=== PATIENT | female | born 1975 | race Caucasian/White ===

== ENCOUNTER 2016-06-22 18:33 | Inpatient (IN) ==
[2016-06-22 20:34] LABS: INR 0.98 (0.86-1.15); PROTIME 13.3 Seconds (12.1-15.5)
[2016-06-22 20:35] LABS: PTT PL 24.1 Seconds (22.6-43.9)
[2016-06-22 20:36] LABS: BASO 1 % (0-1); BASO% 0.8 % (0.0-0.8); EOS# 0.12 X1000 (0.0-0.7); EOS% 0.9 % (0.0-10.0); HEMATOCRIT 26.9 % (37.0-47.0); IMM GRAN# 0.02 X1000 (0.0-0.04); IMM GRAN% 0.2 % (0.0-0.5); LYMPH# 2.22 X1000 (1.2-3.4); LYMPH% 17.1 % (20.5-51.1); LYMPHS 13 % (21-51); MANUAL DIFF NEEDED? YES; MCH 16.3 PG (27-31); MCV 62.6 FL (81-99); MONO 8 % (1-9); MONO% 6.9 % (1.7-9.3); NEUT% 74.1 % (42.2-75.2); PLT 387 X1000 (130-400)
[2016-06-22 20:49] LABS: AGAP 15; ALBUMIN 4.5 g/dL (3.5-5.0); ALKALINE PHOSPHATASE 56 U/L (32-104); BUN 25 mg/dL (8-22); CALCIUM 8.9 mg/dL (8.8-10.2); CHLORIDE 99 mmol/L (98-107); COSMO 276; GOT 12 U/L (10-30); GPT 8 U/L (10-36); POTASSIUM 3.8 mmol/L (3.5-5.1); SODIUM 135 mmol/L (136-145); TCO2 22 mmol/L (25-35); TOTAL BILIRUBIN < 0.15 mg/dL (0.20-1.00); TOTAL PROTEIN 7.6 g/dL (6.3-8.3)
[2016-06-22] MEDS ORDERED: DILAUDID ONE (21:28)
[2016-06-22] MEDS ORDERED: DILAUDID IV ONE (21:30)
[2016-06-22] MEDS ORDERED: NS 1,000 ML IV ONE (22:20)
[2016-06-22] MEDS ORDERED: TYLENOL PO ONE (23:18)
[2016-06-22] MEDS ORDERED: BENADRYL PO ONE (23:18)
[2016-06-23 01:10] LABS: OCCULT BLOOD 1 NEGATIVE (NEGATIVE)
[2016-06-23] MEDS: PERCOCET-5 PO PRN ×5 (01:46→23:05)
[2016-06-23 07:39] LABS: HEMATOCRIT 31.7 % (37.0-47.0); HEMOGLOBIN 9.1 g/dL (12.0-16.0); MCH 19.6 PG (27-31); MCHC 28.7 g/dL (33-37); MCV 68.3 FL (81-99); MPV 10.3 FL (7.4-10.4); RBC 4.64 XMIL (4.2-5.4)
[2016-06-23 07:48] LABS: ALBUMIN 4.1 g/dL (3.5-5.0); CALCIUM 8.5 mg/dL (8.8-10.2); POTASSIUM 4.1 mmol/L (3.5-5.1); TOTAL BILIRUBIN 0.5 mg/dL (0.20-1.00); TOTAL PROTEIN 6.8 g/dL (6.3-8.3)
[2016-06-23] MEDS ORDERED: G.I. COCKTAIL PO PRN (08:42)
[2016-06-23] MEDS ORDERED: SODIUM CHLORIDE 0.9% INJ SCH (08:45)
[2016-06-23] MEDS: PROTONIX IV SCH ×2 (09:26→23:06)
[2016-06-23] MEDS: CARAFATE PO SCH ×3 (09:34→15:43)
[2016-06-23] MEDS ORDERED: ZOFRAN IV PRN (09:37)
--- NOTE | 2016-06-23 15:52 | Diag Imaging Result Document ---
PROCEDURE NAME: MRI BRAIN W/O CONTRAST - 06/23/2016 MRI BRAIN WITHOUT CONTRAST: TECHNIQUE: No contrast administered per request of the referring provider. COMPARISON: No comparison MRI brain is available. FINDINGS: The technologist repeated multiple sequences due to patient motion. Despite this, there are still artifacts from motion which limit detail on several of the sequences. There is no evidence of hemorrhage, mass effect, midline shift, or hydrocephalus. There are no substantial signal abnormalities identified. IMPRESSION: Some limitation of detail due to artifacts from motion. No visible intracranial abnormality.
--- NOTE | 2016-06-23 18:05 | HISTORY AND PHYSICAL ---
CHIEF COMPLAINT: Abnormal labs, shortness of breath, weakness and fatigue. HISTORY OF PRESENT ILLNESS: This is a 41-year-old female who presented to the emergency room on the recommendation of her primary care physician after being found to have a hemoglobin of 7. She has complained of weakness, fatigue, some shortness of breath especially on exertion for a week prior. She states she has a history of migraines and over the last 1-2 months has had an increase in headaches taking up to 5 Goody powders a day most every day for relief of her headache. . She has been vomiting in the previous 4 days prior to admission but she denies any black or bloody vomitus or stools. Labs revealed a hemoglobin of 7 and hematocrit of 26.9. She was typed and crossed and given 2 units of packed cells with repeat hemoglobin and hematocrit being 9.1 and 31.7. PAST MEDICAL HISTORY: Migraine headache. PAST SURGICAL HISTORY: Tubal ligation. SOCIAL HISTORY: She smokes about half a pack a day. She denies alcohol or illicit drug use. ALLERGIES: Penicillin which causes hives. HOME MEDICATIONS: Imitrex daily, triamterene/hydrochlorothiazide 37.5/25 daily , losartan 1 daily, omeprazole 1 tablet daily, Celexa 1 daily. REVIEW OF SYSTEMS: A 14 point review of systems is discussed with the patient with pertinent positives being headache, vomiting. She denies chest pain, palpitations, weakness, fatigue, dyspnea on exertion. She denies chest pain, palpitations, dizziness, syncope, cough, fever, chills, PND, orthopnea, diarrhea, constipation, black or bloody vomitus, black or bloody stools, hematuria, dysuria, frequency, urgency. PHYSICAL EXAMINATION: GENERAL: This is a 41-year-old female who is sitting in the bed in no distress. VITAL SIGNS: Blood pressure is 118/66 with a heart rate of 75, respirations are 18, temperature is 98.4 degrees with room air saturations of 100%. HEENT: Head is normocephalic, atraumatic. Pupils are equal, round, react to light. EOMs are intact. Sclerae are anicteric. Mucous membranes are moist. NECK: Supple. Trachea midline. CARDIOVASCULAR: Regular rate and rhythm. S1 and S2 appreciated. PULMONARY: Breath sounds are clear with no increased work of breathing noted. GASTROINTESTINAL: Abdomen soft, nontender, nondistended. Bowel sounds in all 4 quadrants. BACK: No CVAT. No spine tenderness. MUSCULOSKELETAL: Good range of motion of joints. EXTREMITIES: No clubbing, cyanosis. She does have some pretibial and pedal edema noted. Calves are nontender. Pulses are palpable x4. DIAGNOSTICS: Lab. WBC is 13 with a hemoglobin of 7, hematocrit 26.9 and platelets of 387,000. Sodium is 135, potassium 3.8, BUN 25, creatinine 1.6 with a glucose of 131. MRI of the brain reveals no visible intracranial abnormality. ASSESSMENT AND PLAN: 1. Gastrointestinal bleed. The patient denies any black or bloody vomitus or black or bloody stools. She will be placed on IV Protonix and will guaiac all stools. 2. Symptomatic anemia. Patient has been transfused 2 units of packed cells with hemoglobin and hematocrit increasing from 7 and 26.9 to 9.1 and 31.7 respectively. We will continue to trend CBC. We will guaiac all stools. Hopefully hemoglobin and hematocrit remained stable, she will have no further bleeding and can follow up with GI on an outpatient basis. If hemoglobin and hematocrit drops or there are signs of bleeding she will be transferred to [facility] where she can be evaluated by gastroenterology. 3. Acute kidney injury. This is most likely secondary to volume depletion as she states she has been vomiting for the last 4 days. We will hydrate and trend labs holding all renal toxic medications. 4. Leukocytosis. This is most likely reactive as she did decrease to 7.9 this morning. Will continue to trend WBC. The patient denies any illness or signs of illness prior to admission and she has been afebrile. Will continue to monitor. 5. Migraine headaches. MRI of the brain revealed no acute abnormality. Will give oxycodone q.4 hours p.r.n. for pain. Dictated by MACHO Cerrato for Nithin Pink MD cc: MACHO Cerrato MD [facility]
[2016-06-24] MEDS: PERCOCET-5 PO PRN ×3 (00:23→13:53)
[2016-06-24] MEDS: NICODERM PATCH TD SCH ×2 (00:30→08:49)
[2016-06-24 06:32] LABS: HEMATOCRIT 30.5 % (37.0-47.0); HEMOGLOBIN 8.6 g/dL (12.0-16.0); MCH 19.2 PG (27-31); MCHC 28.2 g/dL (33-37); MCV 68.2 FL (81-99); MPV 10.2 FL (7.4-10.4); RBC 4.47 XMIL (4.2-5.4)
[2016-06-24 06:56] LABS: CALCIUM 8.5 mg/dL (8.8-10.2); POTASSIUM 3.3 mmol/L (3.5-5.1)
[2016-06-24] MEDS: PROTONIX IV SCH (08:49)
[2016-06-24] MEDS: CARAFATE PO SCH ×2 (08:49→12:14)
[2016-06-24] MEDS ORDERED: NICODERM PATCH TD SCH (09:00)
[2016-06-24] MEDS ORDERED: KLOR-CON PO ONE (12:39)
[2016-06-24 13:00] VITALS: BP 155/62
--- NOTE | 2016-06-25 01:24 | DISCHARGE SUMMARY ---
ADMISSION DATE: 06/22/2016 DISCHARGE DATE: 06/24/2016 DISCHARGE DIAGNOSES: 1. Anemia likely chronic iron deficiency. Patient is heme negative. She has no signs or symptoms of gastrointestinal bleed. 2. Leukocytosis resolved. WBCs 13 on admit and currently 6. 3. Anemia 7 and 26 on admit, currently 8 and 30 on discharge. 4. Acute stress reaction. 5. Chronic depression. 6. Hypokalemia resolved. 7. Hypocalcemia stable. 8. Acute volume depletion with elevated BUN and creatinine resolved. 9. Acute renal failure secondary to volume depletion resolved. Serum creatinine 1.1 on discharge. 10. Chronic tobacco abuse. Again, discussed with the patient perils of smoking. CONSULTATION: None. PROCEDURE: None. BRIEF HOSPITAL COURSE: Patient is 41-year-old female who was admitted as noted on the HPI. She was typed, crossed, transfused as it was unclear as to whether she was having an acute GI bleed as she denied any knowledge of anemia prior to presenting to the emergency department. However after further discussion with her notes that she has been tired, fatigued for the last 3 or 4 months, has continued to gradually worsen. She denies any blood in her stool, blood in urine. Denies any free bleeding or bruising. She notes that she has been very stressed and fatigued secondary to recently her and leaving [place] and moving back home to [place]. She has not been eating well. Notes that her menstrual periods have also been irregular. Patient notes that she has been having headaches off and on since she was 11. She has recently had several severe migraines nothing seems to help. She has been trying medications at home. MRI in the hospital was negative for any acute mass effect or acute pathology. DISPOSITION: The patient will be discharged home. Her hemoglobin and hematocrit has improved. Discussed with her no aspirin, Aleve, ibuprofen or NSAID type products until she follows up with her primary care, Ashley Avelar in 1-2 weeks. Did write prescription for Percocet 7.5 q.6 p.r.n. Will continue to follow outpatient. She will take a multivitamin with iron outpatient as well. Prescription for Zofran if needed as well as Prilosec. TIME SPENT: 45 minutes was spent in discharge planning and instructions discussing with patient that should she start noting any bleeding or symptoms worsen she certainly will need to come back to the ER and will need to stay in-house at that point to do endoscopy but does not appear that this is clinically necessary currently. cc: Nithin Pink MD
--- NOTE | 2016-06-25 07:01 | DISCHARGE SUMMARY ---
ADMISSION DATE: 06/22/2016 DISCHARGE DATE: 06/24/2016 DIAGNOSES: 1. Symptomatic anemia. 2. Chronic iron-deficiency anemia. 3. Acute kidney injury, resolved. 4. Leukocytosis, resolved. 5. History of migraine headaches. DIAGNOSTICS: 1. 06/23/2016 MRI of the brain revealed no visible intracranial abnormality. 2. Stool for occult blood was negative. HOSPITAL COURSE: Ms. Lackey presented to the emergency room for evaluation after having been found to have a hemoglobin of 7. She stated she had some fatigue and weakness and shortness of breath for the last 6 or 8 months. She does have a long history of migraine headaches and she has been taking Goody Powders, sometimes up to 5 a day, every day, over the last 1-2 months. She has denied any black or bloody vomitus, black or bloody stools. She does state that in the past she has been diagnosed with iron deficiency anemia. She did have a hemoglobin and hematocrit of 7 and 26.9. She was given 2 units of packed cells for a hemoglobin and hematocrit of 9.1 and 31.7. Stool was negative for blood. She did have a creatinine of 1.6 on admission with IV hydration. This did decrease to 1.1. DISCHARGE PHYSICAL EXAMINATION: Cardiovascular: Regular rate and rhythm. S1 and S2 appreciated. Pulmonary: Breath sounds are clear with no increased work of breathing noted. Gastrointestinal: Abdomen is soft, nontender, nondistended, with bowel sounds in all 4 quadrants. Back: No costovertebral angle tenderness. No spine tenderness. Musculoskeletal: Good range of motion of joints. Pulses are palpable x4. Calves are nontender. Neurologic: She is alert and oriented x3. Cranial nerves 2-12 grossly intact. DISCHARGE VITAL SIGNS: Blood pressure is 126/62, with a heart rate of 59, respirations are 16, temperature is 98.2 degrees oral, with room air saturations of 96-98%. DISCHARGE ACTIVITY: As tolerated. FOLLOWUP: She needs to followup with her primary care physician in the next 1-2 weeks. She has been given the number for [facility], as well as a physician referral number. DISCHARGE MEDICATIONS: 1. Imitrex 1 tablet daily. 2. Triamterene/hydrochlorothiazide 37.5/25 daily. 3. Losartan potassium 1 daily. 4. Omeprazole daily. 5. Celexa daily. 6. Icar-C 1 daily. The patient and I discussed the perils of continuing to take Goody Powders daily, especially 5 every day. We discussed the need for her to followup with her primary care physician for management of her headaches, avoiding aspirin, Goody Powders, or NSAIDs at this time. We also discussed that she would need a GI workup, as she did state that she has had indigestion for quite some time, although it mostly relates to Goody Powders use. GI workup can be arranged by her primary care physician. She is being discharged home in stable condition with family members. TIME SPENT: This is a greater than 30 minute discharge. Dictated by MACHO Cerrato for Nithin Pink MD cc: MACHO Cerrato MD
--- NOTE | 2016-06-30 20:22 | PROVIDER DOCUMENTATION ---
This chart was entered by Salome Fernandes Scribe, acting as scribe for Hugo Valerio DO. HPI-General Adult - General Chief Complaint: Abnormal Lab[s] Stated Complaint: LOW BLOOD LEVELS Time Seen by Provider: 06/22/16 19:48 Source: patient Allergies/Adverse Reactions: Patient Allergies Allergy/AdvReac Type Severity Reaction Status Date / Time Penicillins Allergy Severe HIVES Verified 06/22/16 19:23 Home Medications: Home Medication List Medication Instructions Recorded Confirmed Last Taken Type Citalopram [Celexa] 1 tab PO DAILY 06/22/16 06/22/16 06/22/16 History Levocetirizine Dihydrochloride 1 tab PO DAILY 06/22/16 06/22/16 06/22/16 History Losartan Potassium 1 tab PO DAILY 06/22/16 06/22/16 06/22/16 History Omeprazole 1 tab PO DAILY 06/22/16 06/22/16 06/22/16 History Sumatriptan Succinate [Imitrex] 1 tab PO DAILY 06/22/16 06/23/16 Unknown History Triamterene/Hydrochlorothiazid 1 tab PO DAILY 06/22/16 06/22/16 06/22/16 History [Triamterene-Hctz 37.5-25 mg Tb] Iron Carbonyl/Ascorbic Acid 1 each PO DAILY #30 tablet 06/24/16 Unknown Rx [Icar-C] Oxycodone HCl/Acetaminophen 1 each PO 3-4XDAY PRN PRN #20 06/24/16 Unknown Rx [Percocet 7.5-325 mg Tablet] tablet - History of Present Illness -Gen Adult Nature of Presenting Problems: 41 Y/O F presents to ED with Abnormal Labs. Pt states that she went to the Dr. today and states that she had abnormal labs. Pt has a HGB of 7. 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 Pt states she's had migraine all day, unknown site of active bleeding and reports vomiting 4 x today. Location of Pain/Injury: reports: generalized Pain Radiation: reports: no radiation Quality of Pain: reports: aching Severity: reports: severe Onset/Duration: reports: this afternoon Timing: reports: still present Associated Symptoms: reports: headaches, shortness of breath, vomiting, weakness . denies: constipation, diarrhea, fever/chills, loss of appetite Similar Symptoms Previously?: No Recently seen or treated by another doctor?: Yes (today 06/22/2016) Review of Systems - Adult - REVIEW OF SYSTEMS - ADULT Constitutional: denies: chills, fever Eyes: reports: no symptoms reported Ears, Nose, Mouth & Throat: reports: no symptoms reported Cardiovascular: reports: no symptoms reported Respiratory: reports: shortness of breath. denies: cough Gastrointestinal: reports: vomiting. denies: diarrhea Genitourinary: reports: no symptoms reported Musculoskeletal: reports: no symptoms reported Integumentary: reports: no symptoms reported Neurological: reports: dizziness/vertigo, headache/migraines. denies: slurred speech Psychiatric: reports: no symptoms reported Endocrine: reports: change in skin pigment. denies: cold intolerance Hematologic/Lymphatic: denies: blood clots Allergic/Immunologic: reports: no symptoms reported All Other Systems: Reviewed and Negative Past History - Adult - PAST MEDICAL HISTORY-ADULT Review of Records: reports: Old Records Reviewed, Nursing Assessment Review, Medications Reviewed, Social history reviewed & non-contributory. Major Childhood Illnesses: reports: denies history Cardiovascular: reports: denies history Respiratory: reports: denies history Gastrointestinal: reports: denies history Obstetrical/Gynecological: reports: denies history Genitourinary: reports: denies history Musculoskeletal: reports: denies history Neurological: reports: headaches/migraines Endocrine/Immune: reports: denies history Other Conditions: reports: denies history - PRIOR SURGERIES/PROCEDURES Surgical/Procedure History: reports: BTL - IMMUNIZATION STATUS Childhood Immunizations: See Nurse Assessment Flu Vaccine: See Nurse Assessment - FAMILY HISTORY Family History: reviewed, not pertinent - SOCIAL HISTORY Smoking: cigarettes, less than 1 pack/day Alcohol Use Frequency: rarely Living Situation: family Physical Exam-General - CONSTITUTIONAL General Appearance: alert, mild distress - EYES Eyes: PERRL/EOMI, pink conjunctivae - HEAD, EARS, NOSE, MOUTH & THROAT HENMT: normocephalic/atraumatic, moist mucous membranes, normal ENT inspection, TMs normal, pharynx normal - NECK Neck: non-tender, full range of motion, supple, normal inspection - RESPIRATORY Respiratory: chest non-tender, lungs clear, normal breath sounds - CARDIOVASCULAR Cardiovascular: normal peripheral pulses, regular rate, rhythm - GASTROINTESTINAL (ABDOMEN) Abdominal Exam: normal bowel sounds, non tender, soft - MUSCULOSKELETAL Back Exam: normal inspection Extremity: normal range of motion - SKIN Integumentary: jaundice - NEUROLOGIC Neurologic: soil scientist II-XII nml as tested - PSYCHIATRIC Psych/Mental Status: normal mood/affect, normal thought content, normal thought process, oriented x 3 Progress - PLAN OF CARE/RESULTS Progress/Plan/Lab Results: Vital Signs - 8 hr 06/22/16 19:29 Temperature 97.2 F L Pulse Rate 106 H Respiratory Rate 18 Blood Pressure 100/62 O2 Sat by Pulse Oximetry 100 Laboratory Results - last 24 hr 06/22/16 06/22/16 06/22/16 20:05 20:05 20:05 WBC 13.01 H RBC 4.30 Hgb 7.0 L Hct 26.9 L MCV 62.6 L MCH 16.3 L MCHC 26.0 L RDW Std Deviation 19.8 H Plt Count 387 MPV 11.0 H Immature Gran % (Auto) 0.2 Neut % (Auto) 74.1 Lymph % (Auto) 17.1 L [place] % (Auto) 6.9 Eos % (Auto) 0.9 Baso % (Auto) 0.8 Immature Gran # (Auto) 0.02 Neut # (Auto) 9.64 H Lymph # (Auto) 2.22 [place] # (Auto) 0.90 H Eos # (Auto) 0.12 Baso # (Auto) 0.11 Segmented Neutrophils 78 H Lymphocytes 13 L Monocytes 8 Basophils 1 PT 13.3 INR 0.98 APTT (Factor Assay) 24.1 Sodium 135 L Potassium 3.8 Chloride 99 Carbon Dioxide 22 L Anion Gap 15 BUN 25 H Creatinine 1.6 H Estimated GFR/1.73 m2 35 BUN/Creatinine Ratio 16 Glucose 131 H Calculated Osmolality 276 Calcium 8.9 Total Bilirubin < 0.15 L AST 12 ALT 8 L Alkaline Phosphatase 56 Total Protein 7.6 Albumin 4.5 Globulin 3.0 Albumin/Globulin Ratio 1.0 Blood Type Antibody Screen 06/22/16 20:05 WBC RBC Hgb Hct MCV MCH MCHC RDW Std Deviation Plt Count MPV Immature Gran % (Auto) Neut % (Auto) Lymph % (Auto) [place] % (Auto) Eos % (Auto) Baso % (Auto) Immature Gran # (Auto) Neut # (Auto) Lymph # (Auto) [place] # (Auto) Eos # (Auto) Baso # (Auto) Segmented Neutrophils Lymphocytes Monocytes Basophils PT INR APTT (Factor Assay) Sodium Potassium Chloride Carbon Dioxide Anion Gap BUN Creatinine Estimated GFR/1.73 m2 BUN/Creatinine Ratio Glucose Calculated Osmolality Calcium Total Bilirubin AST ALT Alkaline Phosphatase Total Protein Albumin Globulin Albumin/Globulin Ratio Blood Type A POSITIVE Antibody Screen NEGATIVE Orders Category Date Time Status CBC WITH ELECTRONIC DIFF [HEME] Stat Lab 06/22/16 20:05 Completed CMP [COMPREHENSIVE METABOLIC PANEL] [CHEM] Stat Lab 06/22/16 20:05 Completed [address]IME WITH INR PL [COAG] Stat Lab 06/22/16 20:[address] [COAG] Stat Lab 06/22/16 20:05 Completed TYPE & SCREEN [BBK] Stat Lab 06/22/16 20:05 Completed Hydromorphone [Dilaudid] Med 06/22/16 21:28 Discontinued 1 mg .ROUTE .STK-MED ONE Hydromorphone [Dilaudid] Med 06/22/16 21:30 Discontinued 1 mg IV NOW ONE Result Diagrams: 06/24/16 05:40 06/24/16 05:40 - CONSULTS/PCP/HOSPITALIST Notification #1 *Consult/PCP/Hospitalist*: Dr. Griffiths Time Discussed: 22:10 Reason/Comments: Admit Consult Disposition: Admit (Admit Accepted) Departure - Departure Time of Disposition Decision: 22:00 DIAGNOSIS: Anemia Disposition: ADMITTED INPATIENT 09 Certified Medical Emergency: Emergent Condition: Stable - Critical Care Note This patient required my direct & personal management of CC.: No This chart was documented by the indicated scribe, (Salome Fernandes Scribe) and accurately reflects the services I performed and decisions made by , Hugo Valerio DO, as attested by the provider's signature.
== END 2016-06-24 13:45 | disposition home or self-care (01) ==
LOC: P.ED 18:33 → P.MEDSURG 22:45
PROVIDERS: ATTEND Family Medicine

== ENCOUNTER 2016-07-05 15:58 | Inpatient (IN) ==
--- NOTE | 2016-07-05 16:45 | ED EKG INTERP ---
This chart was entered by Veda Rodríguez Scribe, acting as scribe for Serafin Alonzo MD. EKG Interpretation - EKG Time of EKG reading by physician:: 16:16 EKG Read and Signed by:: Serafin Alonzo EKG Interpretation (*Must complete 3 of following elements*): Abnormal Rate: 122 Rhythm: sinus tachycardia Comments: nonspecific T wave abnormality This chart was documented by the indicated scribe, (Veda Rodríguez Scribe) and accurately reflects the services I performed and decisions made by me, Serafin Alonzo MD, as attested by the provider's signature.
[2016-07-05 16:54] LABS: BASO% 0.9 % (0.0-0.8); EOS# 0.26 X1000 (0.0-0.7); EOS% 2.4 % (0.0-10.0); HEMATOCRIT 36.5 % (37.0-47.0); HEMOGLOBIN 10.6 g/dL (12.0-16.0); IMM GRAN# 0.03 X1000 (0.0-0.04); IMM GRAN% 0.3 % (0.0-0.5); LYMPH# 1.66 X1000 (1.2-3.4); LYMPH% 15.2 % (20.5-51.1); MANUAL DIFF NEEDED? NO; MCH 20.6 PG (27-31); MONO% 7.3 % (1.7-9.3); NEUT% 73.9 % (42.2-75.2); PLT 457 X1000 (130-400); RBC 5.14 XMIL (4.2-5.4)
[2016-07-05] MEDS ORDERED: PHENERGAN IV ONE (17:11)
[2016-07-05] MEDS ORDERED: NS 3,000 ML IV ONE (17:11)
[2016-07-05] MEDS ORDERED: SODIUM CHLORIDE 0.9% INJ ONE (17:11)
[2016-07-05] MEDS ORDERED: IMITREX SUBQ ONE (17:12)
[2016-07-05 17:13] LABS: CALCIUM 9.1 mg/dL (8.8-10.2); POTASSIUM 3.8 mmol/L (3.5-5.1); TOTAL BILIRUBIN 0.31 mg/dL (0.20-1.00); TOTAL PROTEIN 7.1 g/dL (6.3-8.3)
--- NOTE | 2016-07-05 17:40 | PROVIDER DOCUMENTATION ---
This chart was entered by Veda Rodríguez Scribe, acting as scribe for Serafin Alonzo MD. HPI-Headache - General Chief Complaint: Near Syncope Stated Complaint: LOW BLOOD,AVALOS Time Seen by Provider: 07/05/16 16:08 Source: patient Allergies/Adverse Reactions: Patient Allergies Allergy/AdvReac Type Severity Reaction Status Date / Time Penicillins Allergy Severe HIVES Verified 06/22/16 19:23 Home Medications: Home Medication List Medication Instructions Recorded Confirmed Last Taken Type Citalopram [Celexa] 1 tab PO DAILY 06/22/16 07/05/16 07/05/16 09:00 History Levocetirizine Dihydrochloride 1 tab PO DAILY 06/22/16 07/05/16 07/05/16 09:00 History Sumatriptan Succinate [Imitrex] 1 tab PO DAILY 06/22/16 07/05/16 07/05/16 09:00 History Triamterene/Hydrochlorothiazid 1 tab PO DAILY 06/22/16 07/05/16 07/05/16 09:00 History [Triamterene-Hctz 37.5-25 mg Tb] Iron Carbonyl/Ascorbic Acid 1 each PO DAILY #30 tablet 06/24/16 07/05/16 09:00 Rx [Icar-C] Omeprazole 1 tab PO DAILY #90 capsule. 07/08/16 Unknown Rx Oxycodone/APAP 5 mg/325 mg 1 - 2 each PO Q4H PRN PRN #30 07/08/16 Unknown Rx [Percocet-5] tablet Sucralfate [Carafate] 1 gm PO 4XDAY #120 tablet 07/08/16 Unknown Rx - History of Present Illness-Headache Nature of Presenting Problem: Pt is 41 y/o F presents to the ED with headache. Pt states AVALOS has been present for 2 days. Pt denies N and V. Pt states taking meds for AVALOS with no relief. Headache Location: reports: global Quality of Pain: reports: pressure Severity: reports: moderate Onset/Duration: reports: 2 days ago Timing: reports: still present Any recent trauma/injury?: reports: none Headache severity at the maximum: moderate Headache Exacerbated by:: reports: nothing Modifying Factors: improves with: nothing Associated Symptoms: reports: headache, weakness Similar Symptoms Previously?: Yes Recently seen or treated by another doctor?: No Review of Systems - Adult - REVIEW OF SYSTEMS - ADULT Constitutional: reports: no symptoms reported Eyes: reports: no symptoms reported Ears, Nose, Mouth & Throat: reports: no symptoms reported Cardiovascular: reports: irregular heart rate (tachy). denies: chest pain, heart murmur Respiratory: reports: no symptoms reported Gastrointestinal: reports: no symptoms reported Genitourinary: reports: no symptoms reported Musculoskeletal: reports: muscle weakness. denies: bone pain, joint pain, neck pain Integumentary: reports: no symptoms reported Neurological: reports: headache/migraines (AVALOS). denies: dizziness/vertigo, syncope Psychiatric: reports: no symptoms reported Endocrine: reports: no symptoms reported Hematologic/Lymphatic: reports: no symptoms reported Allergic/Immunologic: reports: no symptoms reported All Other Systems: Reviewed and Negative Past History - Adult - PAST MEDICAL HISTORY-ADULT Review of Records: reports: Nursing Assessment Review, Medications Reviewed, Social history reviewed & non-contributory. Major Childhood Illnesses: reports: denies history Cardiovascular: reports: denies history Respiratory: reports: denies history Gastrointestinal: reports: denies history Obstetrical/Gynecological: reports: denies history Genitourinary: reports: denies history Musculoskeletal: reports: denies history Neurological: reports: headaches/migraines Endocrine/Immune: reports: denies history Other Conditions: reports: denies history - PRIOR SURGERIES/PROCEDURES Surgical/Procedure History: reports: BTL - IMMUNIZATION STATUS Childhood Immunizations: See Nurse Assessment Flu Vaccine: See Nurse Assessment - FAMILY HISTORY Family History: reviewed, not pertinent - SOCIAL HISTORY Smoking: cigarettes, greater than 1 pack/day Provider spent 3-5 mins advising pt. on dangers of tobacco.: Discussed manners to quit use, and f/u contacts for add'l counseling. Substance Use: alcohol Alcohol Use Frequency: occasionally Living Situation: family Physical Exam- Neurological - Physical Exam-Neuro Initial Vital Signs Reviewed: Yes General Appearance: appears well, alert, no apparent distress Eye Exam: bilateral eye: normal inspection, PERRL, EOMI HENMT: normocephalic/atraumatic, moist mucous membranes, normal ENT inspection Head Injury: no evidence of injury Neck: non-tender, full range of motion, supple, normal inspection Respiratory: chest non-tender, lungs clear, normal breath sounds Cardiovascular: normal peripheral pulses, tachycardia Abdominal Exam: normal bowel sounds, non tender, soft Lymphatic: no adenopathy Extremity: normal range of motion, non-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, 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 Exam: normal hearing, normal speech, PERRL Coordination/Gait: normal finger to nose Motor/Sensory: no motor deficit, no sensory deficit, no pronator drift Neurologic: grossly normal Integumentary: normal color, normal turgor, warm/dry Psych/Mental Status: normal mood/affect, oriented x 3 Progress - PLAN OF CARE/RESULTS Progress/Plan/Lab Results: Orders Category Date Time Status Admit - [facility] ([place] Routine AdmDCTranf 07/06/16 00:18 Ordered Activity - Strict Bedrest ORDERED Care 07/06/16 00:18 Active Apply Mechanical Device [QM] ORDERED Care 07/06/16 00:18 Active Intake and Output-Strict ORDERED Care 07/06/16 00:18 Active Misc. NRSG Communication Order DIRECTED Care 07/05/16 16:50 Active Vital Signs Order Q 8-HR ASSESS Care 07/06/16 00:18 Active Regular Diet Diet 07/06/16 23:30 Completed BASIC METABOLIC PANEL [CHEM] Routine Lab 07/06/16 05:30 Completed CBC WITH DIFF [HEME] Routine Lab 07/06/16 05:30 Completed CBC WITH ELECTRONIC DIFF [HEME] Stat Lab 07/05/16 16:30 Completed CMP [COMPREHENSIVE METABOLIC PANEL] [CHEM] Stat Lab 07/05/16 16:30 Completed Ddimer [D-DIMER] [CHEM] Stat Lab 07/05/16 16:30 Completed FERRITIN Stat Lab 07/06/16 00:18 Completed FOLATE Stat Lab 07/06/16 00:18 Completed SERUM OSMOLALITY [CHEM] Stat Lab 07/06/16 01:41 Completed Stool [OCCULT BLOOD SCREENING] [STOOL] Stat Lab 07/05/16 16:51 Completed T4 Stat Lab 07/05/16 16:30 Completed TSH Routine Lab 07/06/16 05:30 Completed TSH Stat Lab 07/05/16 16:30 Completed UA NIMS W/REFLEX CULT [URINALYSIS] Stat Lab 07/05/16 18:25 Completed UIBC W TOTAL IRON [CHEM] Stat Lab 07/06/16 00:18 Completed UR OSMOLALITY [CHEM] Stat Lab 07/06/16 05:30 Completed UR SODIUM [URCHEM] Stat Lab 07/06/16 05:30 Completed URINE CULTURE [RM] Routine Lab 07/05/16 18:37 Completed VITAMIN B12 Routine Lab 07/06/16 05:30 Completed 0.9% Sodium Chloride Inj [Ns] 1,000 ml Med 07/05/16 22:22 Discontinued IV 125 mls/hr 0.9% Sodium Chloride Inj [Ns] 3,000 ml Med 07/05/16 17:11 Discontinued IV 999 mls/hr Butalbital/APAP/Caffeine [Fioricet] Med 07/06/16 00:18 Discontinued 1 each PO Q4H PRN PRN Cetirizine [Zyrtec] Med 07/06/16 09:00 Discontinued 10 mg PO DAILY Citalopram [Celexa] Med 07/06/16 09:00 Discontinued 40 mg PO DAILY Ibuprofen [Motrin] Med 07/05/16 19:40 Discontinued 800 mg PO NOW ONE Iron Carbonyl/Ascorbic Acid [Icar-C] Med 07/06/16 09:00 Discontinued 1 each PO DAILY Nicotine Patch [Nicoderm Patch] Med 07/06/16 09:00 Discontinued 21 mg TD DAILY Omeprazole [Prilosec] Med 07/06/16 07:00 Discontinued 20 mg PO DAILY@0700 Ondansetron [Zofran] Med 07/06/16 00:18 Discontinued 4 mg IV Q4H PRN PRN Oxycodone/APAP 10 mg/325 mg [Percocet-10] Med 07/05/16 22:38 Discontinued 1 each PO NOW ONE Oxycodone/APAP 5 mg/325 mg [Percocet-5] Med 07/06/16 00:18 Discontinued 1 - 2 each PO Q6H PRN PRN Promethazine [Phenergan] Med 07/05/16 17:11 Discontinued 25 mg IV NOW ONE Sodium Chloride 0.9% Med 07/05/16 17:11 Discontinued 10 ml INJ NOW ONE Sumatriptan [Imitrex] Med 07/05/16 17:12 Discontinued 6 mg SUBQ NOW ONE Transfer/Admit Order [TRANSFER] Routine Transfer 07/05/16 23:28 Completed Result Diagrams: 07/08/16 05:55 07/08/16 05:55 - CHANGE OF SHIFT REPORT (ED Provider) Report Given and Care Transferred to:: Dr. Martinez Time of Transfer: 17:53 Items Pending: Labs Departure - Departure Time of Disposition Decision: 11:30 DIAGNOSIS: Anemia Disposition: ADMITTED INPATIENT 09 Certified Medical Emergency: Emergent Condition: Stable - Critical Care Note This patient required my direct & personal management of CC.: No This chart was documented by the indicated scribe, (Veda Rodríguez, Kaden) and accurately reflects the services I performed and decisions made by me, Serafin Alonzo MD, as attested by the provider's signature.
[2016-07-05 18:30] LABS: URINE MICRO REVIEW NEEDED? NO; URINE SOURCE CLEAN CATCH
[2016-07-05 18:35] LABS: BILIRUBIN URINE NEGATIVE (NEGATIVE); BLOOD URINE NEGATIVE (NEGATIVE); COLOR YELLOW; GLUCOSE URINE NEGATIVE (NEGATIVE); LEUKOCYTES URINE SMALL (NEGATIVE); NITRITE URINE NEGATIVE (NEGATIVE); PH URINE 5.5; PROTEIN URINE TRACE mg/dL (NEGATIVE); SP GRAVITY URINE 1.005; TURBIDITY URINE HAZY (CLEAR); UROBILINOGEN URINE NORMAL (NORMAL)
[2016-07-05 18:36] LABS: UR EPITHELIAL CELLS >10 /HPF (<10); URINE BACTERIA 2+ /HPF; URINE CULTURE NEEDED? YES; URINE RBC <10 /HPF (<10)
[2016-07-05] MEDS ORDERED: MOTRIN PO ONE (19:40)
[2016-07-05] MEDS ORDERED: NS 1,000 ML IV ONE (22:22)
[2016-07-05] MEDS ORDERED: PERCOCET-10 PO ONE (22:38)
[2016-07-06] MEDS ORDERED: ZOFRAN IV PRN (00:18)
[2016-07-06] MEDS ORDERED: CORTROSYN IV ONE (00:35)
[2016-07-06] MEDS: PERCOCET-5 PO PRN ×5 (00:55→21:24)
[2016-07-06] MEDS: NICODERM PATCH TD SCH ×2 (01:33→10:52)
[2016-07-06 01:36] LABS: IRON SATURATION 55 %; TIBC 434 ug/dL; TOTAL IRON 237 ug/dL (49-151); UNBOUND IRON 197 ug/dL (112-346)
--- NOTE | 2016-07-06 04:26 | HISTORY AND PHYSICAL ---
PRIMARY CARE PROVIDER: MACHO Newman. CHIEF COMPLAINT: Near syncopal episode and headache. HISTORY OF PRESENT ILLNESS: This is a 41-year-old female who was last admitted to our service on 06/22/2016. She presented to the emergency room from her primary care provider with a hemoglobin of 7 and fatigue and weakness. She had also complained of a severe headache at that time. An MRI was obtained, which was grossly normal. The patient had a history of taking Goody powders, around 5 daily, to help with her migraines. She has a history of chronic migraines, and no longer has insurance, so she has not been able to take her prophylactic medication. It was hypothesized at that time that she had a GI bleed. However, the patient left without receiving a GI workup, related to not having insurance. She was found to be orthostatic on arrival to the emergency room tonight, with her blood pressure becoming as low as 64/41 in a standing position. After 3 fluid boluses, her supine blood pressure is now 124/75. She is still mildly tachycardic, with a rate of around 93-103, normal sinus rhythm. Her laboratory data was grossly normal. She is still mildly anemic and noted to be macrocytic. Her creatinine was 1.6. She appears to have a baseline creatinine around 1.1. Urine did show bacteria. However, had greater than 10 epithelial cells. It is likely a contaminated sample. The patient states that she has been craving an abnormal amount of salt. She will be admitted to the medical floor for further evaluation and treatment. PAST MEDICAL HISTORY: 1. Anemia 2. Migraine headaches. PREVIOUS SURGICAL HISTORY: Tubal ligation. SOCIAL HISTORY: Lives with her mother. Smokes 1 pack of cigarettes per day. Denies alcohol or illicit drug use or abuse. FAMILY HISTORY: Father had [place]'s disease. Grandparents had diabetes mellitus type 2. ALLERGIES: Penicillin, causing hives. HOME MEDICATIONS: 1. Imitrex 100 mg p.o. daily. 2. Zyrtec 5 mg p.o. daily. 3. Omeprazole 40 mg p.o. daily. 4. Celexa 40 mg p.o. daily. 5. Hyzaar 37.5/25 mg 1 p.o. daily. 6. Icar-C one p.o. daily. 7. Percocet 7.5 mg 3-4 times a day p.r.n. REVIEW OF SYSTEMS: A 14-point review of systems conducted with the patient. She complains of a headache, which has been ongoing. A global headache. Nausea, without vomiting. Weakness, fatigue, and general malaise. She denies hematemesis, melena, hematochezia, hematuria, dysuria. She did complain of dizziness and a near syncopal episode. She denied syncope. Denied cough, fever, chills, PND, or orthopnea. She complained of craving salt. Denied polydipsia, polyphagia, polyuria. PHYSICAL EXAMINATION: VITAL SIGNS: Temperature 97.3 degrees, pulse 93, respirations 18, blood pressure 124/75 in the supine position. Oxygen saturation 98%. Patient was orthostatic, with a 64/41 blood pressure while standing, on arrival. GENERAL: Pleasant 41-year-old female lying in the ER stretcher, with no acute distress. Answers all questions appropriately. Alert and oriented x3. Mother at bedside. HEENT: Head is atraumatic, normocephalic. Pupils equal, round, reactive to light. Extraocular eye movement intact. Sclerae is anicteric. Subconjunctivae is mildly pale. Oral mucosa is dry. NECK: Supple. No JVD. No thyromegaly. Trachea is midline. CARDIAC: Regular rate. Sinus rhythm at this time. S1, S2 appreciated. No murmurs, gallops, or rubs. LUNGS: Clear to auscultation bilaterally. No rhonchi, wheezes or rales. Symmetrical rise and fall with respirations. ABDOMEN: Soft, nondistended, nontender. Bowel sounds present in all 4 quadrants. Normoactive. No pulsatile mass. No organomegaly. EXTREMITIES: No clubbing, cyanosis, or edema. 1+ pedal pulses bilaterally. NEUROLOGICAL: Alert and oriented x3. Cranial nerves 2-12 grossly intact. No focal or motor deficits noted. Strength is equal bilaterally. No facial asymmetry noted. LABORATORY DATA: WBC 10.94, hemoglobin 10.6, hematocrit 36.5, platelet count 457,000. Sodium 134, potassium 3.8, chloride 97, carbon dioxide 24, BUN 23, creatinine 1.6. Urine unremarkable. ASSESSMENT AND PLAN: 1. Fluid volume depletion. 3 L of normal saline was given in the emergency room. We will continue normal saline at 125 mL an hour. 2. Orthostatic hypotension. Likely related to fluid volume depletion, but will rule out differentials such as adrenal insufficiency with cortisol stimulation test in a.m., related to her craving salt and her father having Mill[place]'s disease. She does not have any of the hallmark characteristics, such as bronzing of her skin or color change to her areola. 3. Anemia. The patient is microcytic. I will order an anemia panel, as she was just transfused 2 units of packed red blood cells earlier this month. 4. Chronic migraine headache. Continue home medications. Will give Fioricet and Percocet for headache while in the hospital. 5. Rule out adrenal insufficiency, as noted above. This will be ruled out with a cortisol stimulation test in the a.m. 6. Further recommendations per patient clinical course. Dictated by MACHO Cochran for Marlo Juares MD cc: MACHO Newman CRNP Alexis R. Penot, MD pt examined, agree with above APENOT MTDD
--- NOTE | 2016-07-06 05:26 | EKG Report ---
Test Performed on : 07/05/2016 4:16:27 PM Test Reason : Blood Pressure : / mmHG Vent. Rate : 122 BPM Atrial Rate : 122 BPM P-R Int : 136 ms QRS Dur : 088 ms QT Int : 418 ms P-R-T Axes : 060 030 057 degrees QTc Int : 595 ms Sinus tachycardia. Nonspecific T wave abnormality Abnormal ECG When compared with ECG of 13-NOV-2012 14:55, Nonspecific T wave abnormality now evident in Inferior leads Nonspecific T wave abnormality now evident in Anterolateral leads Unconfirmed Result
[2016-07-06 05:49] LABS: BASO% 0.8 % (0.0-0.8); EOS# 0.19 X1000 (0.0-0.7); EOS% 2.5 % (0.0-10.0); HEMATOCRIT 30.7 % (37.0-47.0); HEMOGLOBIN 8.5 g/dL (12.0-16.0); LYMPH# 1.15 X1000 (1.2-3.4); LYMPH% 14.8 % (20.5-51.1); MANUAL DIFF NEEDED? NO; MCH 20.1 PG (27-31); MCHC 27.7 g/dL (33-37); MCV 72.6 FL (81-99); MONO# 0.37 X1000 (0.11-0.59); MONO% 4.8 % (1.7-9.3); MPV 10.1 FL (7.4-10.4); NEUT% 77.1 % (42.2-75.2); PLT 352 X1000 (130-400); RBC 4.23 XMIL (4.2-5.4)
[2016-07-06 06:07] LABS: CALCIUM 7.7 mg/dL (8.8-10.2); POTASSIUM 4.1 mmol/L (3.5-5.1)
[2016-07-06] MEDS: PRILOSEC PO SCH ×2 (06:44→10:52)
[2016-07-06] MEDS ORDERED: NICODERM PATCH TD SCH (09:00)
[2016-07-06] MEDS: CELEXA PO SCH (10:52)
[2016-07-06] MEDS: ICAR-C PO SCH (10:52)
[2016-07-06] MEDS: ZYRTEC PO SCH (10:52)
[2016-07-06] MEDS: FIORICET PO PRN ×3 (10:57→19:16)
--- NOTE | 2016-07-06 14:54 | Diag Imaging Result Doc PS360 ---
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 FINDINGS: Exam performed using transabdominal and transvaginal probes. The uterus measures 8.2 x 5.3 x 5.3 cm in size and is noted to be retroverted. The myometrium is heterogeneous with a suggestion of small hypoechoic lesions measuring up to 1.2 cm and suspicious for small fibroids. The dual layer endometrial thickness measures 4 mm. There are cervical cysts measuring up to 1.2 cm. The bilateral ovaries demonstrate blood flow signal on Doppler images. There are right ovarian cysts, the largest of which measures 2.9 cm. There are left ovarian cysts measuring up to 1 cm. There is a nonspecific 1.2 cm hypoechoic lesion in the left ovary. There is a small amount of free fluid in the pelvis. IMPRESSION: Apparent small uterine fibroids measuring up to 1.2 cm. Normal endometrial thickness at 4 mm. Small cervical cysts. 2.9 cm right ovarian cyst. Nonspecific 1.2 cm hypoechoic lesion left ovary. Small amount of free fluid in pelvis. Electronically signed by Gilberto Bahena 07/06/2016 9:02 AM
--- NOTE | 2016-07-06 15:12 | PROGRESS NOTE ---
DATE: 07/06/2016 SUBJECTIVE: This patient states that she is feeling better but she is complaining about headache and this is related to her chronic migraine. I increased the frequency of her Percocet from q.6 hours to every 4 hours. I will monitor. We have a positive occult blood in the stool. I have consulted gastroenterology. She has been having microcytic anemia and this is likely secondary to this. OBJECTIVE: Vital Signs: Temperature 98 degrees, pulse 90, respiratory rate 18, blood pressure 114/66, oxygen saturation 93 on room air. HEENT: Head normocephalic. No trauma. PERRLA. Neck: Supple. No JVD. No masses. Central trachea. Chest: Clear to auscultation. No wheezing. No rales. Abdomen: Soft, nontender, nondistended. No hepatosplenomegaly. Extremities: No edema. No clubbing. No cyanosis. Neurological: The patient is alert and oriented x3. No focal neurological deficits. LABORATORY: WBC 7.7, hemoglobin 8.5, hematocrit 30.7, platelets 352,000. Sodium 139, potassium 4.1, chloride 107, bicarbonate 21, BUN 25, creatinine 1.7, glucose 92, calcium 7.7. ASSESSMENT AND PLAN: 1. Gastrointestinal bleed. We have a positive Hemoccult. Gastroenterology department has been consulted. This patient has been having anemia and actually she was transfused recently. Will continue to monitor this patient with telemetry. Pending gastroenterology recommendations. 2. Fluid volume depletion, resolved. We will continue with IV fluids. 3. Microcytic anemia, likely related to GI bleed. Probably this is chronic. We will continue to monitor. She recently was transfused with 2 units of PRBCs earlier this month. 4. Chronic migraine headache. I will continue with her home medication but they will increase the Percocet frequency from every 6 hours to every 4 hours. At this moment she is complaining of a headache. 5. Hypotension. Resolved after fluid resuscitation. cc: Nathan Sprague MD
[2016-07-07] MEDS: FIORICET PO PRN ×3 (00:03→20:03)
[2016-07-07] MEDS: PERCOCET-5 PO PRN ×5 (01:36→21:30)
--- NOTE | 2016-07-07 04:24 | CONSULTATION ---
DATE OF CONSULTATION: 07/06/2016 REFERRING PHYSICIAN: Marlo Juares M.D. INDICATION FOR CONSULTATION: 1. Unexplained anemia. 2. Fatigue. 3. Epigastric pain. HISTORY OF PRESENT ILLNESS: The patient is a 41-year-old, white female, who presented to her primary care doctor's office with fatigue. She was found to be anemic with a hemoglobin of 7. She was transfused with 2 units of blood. However, her symptoms have recurred. She presented to the emergency room with orthostatic hypotension, fatigue and malaise. She was found to be anemic with guaiac-positive stools. We are asked to perform endoscopic evaluation. It should be noted that the patient's reports that she typically consumes 5 or more Goody' s powders a day. She notes some epigastric discomfort but states that she requires a Goody's powder for treatment of her chronic headaches. PAST MEDICAL HISTORY: 1. Anemia. 2. Migraine headaches. 3. GERD. 4. Hypertension. 5. Depression. PAST SURGICAL HISTORY: Tubal ligation. SOCIAL HISTORY: The patient lives with her mother. She smokes 1 pack per day of cigarettes. She denies alcohol or illicit drug use. FAMILY HISTORY: Remarkable in that her father had Gregg's disease. Her grandparents had diabetes mellitus 2. There is no family history of gastric or colon cancer. MEDICATION ALLERGIES: Penicillin which results in hives. HOME MEDICATIONS: 1. Imitrex. 2. Zyrtec. 3. Omeprazole. 4. Celexa. 5. Hyzaar. 6. Icar C. 7. Percocet. REVIEW OF SYSTEMS: Remarkable for chronic headaches, nausea but no vomiting, weakness, fatigue and general malaise. She reports some dizziness and near-syncopal feelings. The remaining review of systems is unremarkable. PHYSICAL EXAMINATION: Vital Signs: On exam, her blood pressure is 121/77, pulse 91, respiration 18, temperature of 99 degrees. HEENT: Negative for jaundice. Her conjunctivae appeared normal. Her oropharyngeal mucosal membranes are unremarkable. Pulmonary: Lungs are clear to auscultation with normal expiratory effort. Cardiovascular: Reveals regular rate and rhythm with no gallops or rubs. Abdominal: Reveals normoactive bowel sounds. The abdomen is soft with moderate epigastric tenderness but no rebound or guarding. Extremities: Bilaterally are negative for cyanosis, clubbing, or edema. IMPRESSION: 1. Anemia. 2. Nausea with intermittent vomiting. 3. Epigastric pain. 4. Anemia. RECOMMENDATION: 1. We will place patient on the schedule for an EGD in the morning. 2. We will schedule colonoscopy as an outpatient. 3. Continue Prilosec for now pending her endoscopic evaluation. 4. Additional recommendations to follow based on our endoscopic findings. cc: MD Nathan Estrada MD MTDD
[2016-07-07] MEDS: PRILOSEC PO SCH (06:13)
[2016-07-07] MEDS ORDERED: CORTROSYN IV ONE (07:00)
[2016-07-07 08:40] LABS: EOS# 0.36 X1000 (0.0-0.7); EOS% 7.2 % (0.0-10.0); HEMATOCRIT 27.7 % (37.0-47.0); LYMPH# 1.94 X1000 (1.2-3.4); MANUAL DIFF NEEDED? YES; MCHC 28.9 g/dL (33-37); MCV 72.7 FL (81-99); MONO# 0.43 X1000 (0.11-0.59); MONO% 8.6 % (1.7-9.3); MPV 10.5 FL (7.4-10.4); NEUT% 43.2 % (42.2-75.2); PLT 332 X1000 (130-400); RBC 3.81 XMIL (4.2-5.4)
[2016-07-07 08:52] LABS: EOS 6 % (1-10); HYPOCHROM 1+; LYMPHS 54 % (21-51); MONO 2 % (1-9)
[2016-07-07] MEDS: ZYRTEC PO SCH (10:04)
[2016-07-07] MEDS: NICODERM PATCH TD SCH (10:05)
--- NOTE | 2016-07-07 11:22 | PROGRESS NOTE ---
DATE: 07/07/2016 SUBJECTIVE: This patient states that she is feeling better. She is still complaining about migraine. She is scheduled for upper endoscopy today. OBJECTIVE: Vital Signs: Temperature 98.4 degrees, pulse 83, respiratory rate 18, blood pressure 114/67, O2 saturation 98 on room air. HEENT: Head normocephalic. No trauma. PERRLA. Neck: Supple. No JVD. No masses. Central trachea. Chest: Clear to auscultation. No wheezing. No rales. Abdomen: Soft, nontender, nondistended. No hepatosplenomegaly. Extremities: No edema. No clubbing. No cyanosis. Neurological: The patient is alert and oriented x3. No focal neurological deficits. LABORATORY: WBC 4.9, hemoglobin 8, hematocrit 27.7, platelets 332,000. ASSESSMENT AND PLAN: 1. GI bleed. We have a positive Hemoccult. Gastroenterology Department will do an upper endoscopy today. This patient is stable. 2. Fluid volume depletion. Resolved. 3. Microcytic anemia. Likely related to GI bleed. Probably this is chronic. We will continue to monitor. She recently was transfused with 2 units of PRBC earlier this month. 4. Chronic migraine headache. Continue with the same management for now. 5. Hypotension resolved after fluid resuscitation. cc: Nathan Sprague MD
[2016-07-07] MEDS: ICAR-C PO SCH (12:07)
[2016-07-07] MEDS: CELEXA PO SCH (12:07)
[2016-07-07] MEDS ORDERED: DIPRIVAN 1% ONE (14:21)
[2016-07-07] MEDS ORDERED: SODIUM CHLORIDE 0.9% INJ SCH (14:30)
[2016-07-07] MEDS ORDERED: LR 1,000 ML ONE (14:47)
[2016-07-07] MEDS ORDERED: XYLOCAINE-MPF 2% ONE (14:47)
[2016-07-07] MEDS: PROTONIX IV SCH (15:54)
--- NOTE | 2016-07-07 16:53 | OPERATIVE NOTE ---
PROCEDURE DATE: 07/07/2016 REFERRING PHYSICIAN: Nathan Grant M.D. INDICATION FOR PROCEDURE: 1. Nausea. 2. Epigastric pain. 3. Anemia. 4. Presyncopal episode. 5. NSAID use with daily Goody powders. PROCEDURE PERFORMED: Esophagogastroduodenoscopy. CONSENT: Informed consent was obtained from the patient and her prior to the procedure. The risks, benefits, and alternatives were discussed. MEDICATION: The patient received monitored anesthesia care. PERFORMING PHYSICIAN: Shalini Bermudez M.D. ASSISTANTS: 1. [facility] 2. Nilda Turner RN. 3. Omar Quiles RN. 4. Naty Dumont CRNA. 5. Abdiel Joshua M.D. (anesthesia). COMPLICATIONS: There were no complications. ESTIMATED BLOOD LOSS: Less than 1 mL. SPECIMENS REMOVED: None. FINDINGS: After sedation was achieved, the upper endoscope was inserted to the 2nd portion of the duodenum. The hypopharynx appeared endoscopically normal. The tubular esophagus was normal. At the GE junction, there was a Schatzki's ring with a few scattered erosions. The GE junction was present at 39 cm from the incisors. The erosive changes were consistent with grade A erosive esophagitis. There was a hiatal hernia that spanned from 39-44 cm. In the gastric lumen, there was erosive gastritis in the antrum, fundus, and body. In the antrum there was also an 8-10 mm serpiginous ulcer on the pre-pyloric fold. In addition, there was a 7-8 mm pyloric channel ulcer with mild stenosis and a small amount of heme. The pylorus was dilated with passage of the scope. In the duodenal bulb and the 2nd portion of the duodenum, there was duodenitis but no ulcer or active bleeding. After the exam was complete, the lumen was decompressed and the scope was removed without incident. IMPRESSION: 1. Grade A erosive esophagitis. 2. Schatzki's ring. 3. Hiatal hernia. 4. Erosive gastritis. 5. An 8-10 mm serpiginous antral ulcer. 6. A 7-8 mm pyloric channel ulcer. 7. Mild pyloric stenosis secondary to inflammation. 8. Duodenitis. RECOMMENDATION: 1. The patient is currently receiving omeprazole but at 20 mg per day. I would discontinue this dose and begin Protonix 40 mg IV q.12 hours while she is an inpatient. Once she is ready for discharge, I would transition her to omeprazole 40 mg daily. 2. Begin Carafate 1 g 4 times a day. She should complete a 12 week course and then stop. 3. I would check a stool specimen for H. pylori antigen. 4. She was counseled to avoid NSAIDs at all costs. 5. Please monitor hemoglobin and hematocrit and transfuse as indicated. 6. We will have the patient return to clinic 4 weeks from hospital discharge. cc: MD Nathan Estrada MD Alexis R. Penot, MD MTDD
[2016-07-07] MEDS: CARAFATE PO SCH ×2 (18:20→20:03)
[2016-07-08] MEDS: FIORICET PO PRN ×2 (00:21→09:32)
[2016-07-08] MEDS: PERCOCET-5 PO PRN ×2 (01:42→08:37)
[2016-07-08] MEDS: PROTONIX IV SCH (06:17)
[2016-07-08 06:41] LABS: AGAP 10; BASO% 1.6 % (0.0-0.8); BUN 15 mg/dL (8-22); CALCIUM 7.8 mg/dL (8.8-10.2); CHLORIDE 109 mmol/L (98-107); COSMO 282; EOS# 0.27 X1000 (0.0-0.7); EOS% 4.9 % (0.0-10.0); HEMATOCRIT 29.7 % (37.0-47.0); HEMOGLOBIN 8.4 g/dL (12.0-16.0); LYMPH# 2.19 X1000 (1.2-3.4); LYMPH% 39.4 % (20.5-51.1); MANUAL DIFF NEEDED? YES; MCH 20.4 PG (27-31); MCHC 28.3 g/dL (33-37); MCV 72.3 FL (81-99); MONO# 0.43 X1000 (0.11-0.59); MONO% 7.7 % (1.7-9.3); MPV 9.9 FL (7.4-10.4); NEUT% 46.4 % (42.2-75.2); PLT 346 X1000 (130-400); POTASSIUM 3.5 mmol/L (3.5-5.1); RBC 4.11 XMIL (4.2-5.4); SODIUM 141 mmol/L (136-145); TCO2 22 mmol/L (25-35)
[2016-07-08 07:31] LABS: BANDS 2 % (0-1); EOS 6 % (1-10); LYMPHS 40 % (21-51); MONO 8 % (1-9)
[2016-07-08 07:32] LABS: HYPOCHROM 2+
[2016-07-08] MEDS: CELEXA PO SCH (08:38)
[2016-07-08] MEDS: ICAR-C PO SCH (08:38)
[2016-07-08] MEDS: NICODERM PATCH TD SCH (08:38)
[2016-07-08] MEDS: ZYRTEC PO SCH (08:38)
[2016-07-08 08:45] VITALS: BP 118/68
[2016-07-08] MEDS: CARAFATE PO SCH (09:32)
--- NOTE | 2016-07-09 04:16 | DISCHARGE SUMMARY ---
ADMISSION DATE: 07/05/2016 DISCHARGE DATE: 07/08/2016 DIAGNOSES: 1. Fluid volume depletion, resolved. 2. Orthostatic hypotension, resolved. 3. Gastrointestinal bleed secondary to erosive gastritis with a ulcer on the prepyloric fold as well as a pyloric channel ulcer. 4. Anemia secondary to gastrointestinal bleed, status post 2 units of packed cells transfused. 5. Chronic migraine headache. 6. Microcytic anemia related to gastrointestinal bleed. DIAGNOSTICS: On 07/06/2016, transvaginal ultrasound revealed apparent small uterine fibroids measuring up to 1.2 cm, normal endometrial thickness at 4 mm, small cervical cyst, a 2.9 cm right ovarian cyst, nonspecific 1.2 cm hypoechoic lesion on the left ovary. On 07/06/2016, pelvic ultrasound as stated above. PROCEDURES: EGD revealed grade A erosive esophagitis, Schatzki's ring, hiatal hernia, erosive gastritis, an 8-10 mm serpiginous antral ulcer, a 7-8 mm pyloric channel ulcer, mild pyloric stenosis secondary to inflammation and duodenitis. CONSULTS: Dr. Shalini Bermudez, gastroenterology. MICROBIOLOGY: 1. Urine culture revealed no pathogenic growth. 2. Stool for occult blood was positive. HOSPITAL COURSE: Ms. Lackey presented to the emergency room after having been found having a hemoglobin of 7 with fatigue and weakness. MRI was grossly normal. The patient did have a history of taking [employer]ders up to 5 a day for her migraines. She was orthostatic, having a pressure as low as 64/41 in the emergency room. After a 3 L bolus, she had pressures of 124/75 but she still remained tachycardic at 90-100s. She was transfused 2 units of packed cells with hemoglobin and hematocrit increasing to 10.6 and 36.5. It has leveled off at 8.5 and 30.7. EGD results as stated above. She has been placed on Carafate, omeprazole, and Icar-C. She had a creatinine of 1.6. Her baseline was around 1.1. After blood and fluid resuscitation, her creatinine is down to 1. She does have a history of chronic migraines. She was managed with Fioricet and Percocet which did control the headaches well. DISCHARGE PHYSICAL EXAMINATION: Cardiovascular: Regular rate and rhythm. S1 and S2 are appreciated. Pulmonary: Breath sounds are clear. No increased work of breathing noted. Gastrointestinal: Abdomen is soft, nontender, nondistended with bowel sounds in all 4 quadrants. Extremities: No clubbing, cyanosis, or edema. Calves nontender. Pulses palpable x4. Neurologic: She is alert and oriented x3. DISCHARGE ACTIVITY: As tolerated. DISCHARGE VITAL SIGNS: Blood pressure is 118/68, with a heart rate of 77, respirations 16, temperature 97.4 degrees oral. PRIOR DISCHARGE MEDICATIONS: Celexa 1 daily, Imitrex 1 tablet daily, Icar-C 1 daily, triamterene/hydrochlorothiazide 37.5/25 daily, Carafate 1 g 4 times a day, omeprazole 1 tablet daily, Percocet 5/325 one to two q.4 hours p.r.n. FOLLOWUP: She is to follow up with Dr. Bermudez in 4 weeks. She needs to call the office in the morning for an appointment. She has been instructed to call to be seen sooner or return to the emergency room for any syncope, near syncope, any black or bloody vomitus, black or bloody stools, or any questions or concerns that she may have. She is being discharged home in stable condition with family members. TIME SPENT: This is a greater than 30 minute discharge from 11:30 to 12:05. Dictated by MAHCO Cerrato for Nathan Sprague MD cc: MACHO Cerrato MD
== END 2016-07-08 11:30 | disposition home or self-care (01) ==
LOC: ED 15:58 → SUATTDRO 23:44 → 4N 23:44
PROVIDERS: ATTEND Internal Medicine